=== PATIENT | female | born 1960 | race African-American/Black ===

== ENCOUNTER 2016-07-29 09:56 | Emergency (ER) | payer BC ==
[~2016-07-29] VITALS: Ht 175.3 cm; Wt 80.9 kg
[2016-07-29 10:03] VITALS: BP 166/91
[2016-07-29] MEDS ORDERED: ERGOCALCIF50000 UNIT PO (10:45)
[2016-07-29] MEDS ORDERED: GENVOYA TABLET1 EACH PO (10:45)
[2016-07-29] MEDS ORDERED: ISONIAZID,INH300 MG PO (10:46)
[2016-07-29] MEDS ORDERED: METOPROLOL SUCC50 MG PO (10:47)
== END 2016-07-29 11:25 | disposition home or self-care (01) ==
LOC: EME 09:56
DX: S83.91XD Sprain of unspecified site of right knee, subsequent encounter (principal); X58.XXXD Exposure to other specified factors, subsequent encounter
CPT/HCPCS: 73564; 99281; 99284